=== PATIENT | female | born 1965 | race Caucasian/White ===

== ENCOUNTER 2016-06-29 12:05 | Emergency (ER) | payer BC ==
[~2016-06-29] VITALS: Ht 154.9 cm; Wt 77.1 kg
[2016-06-29 12:11] VITALS: BP 110/73
--- NOTE | 2016-06-29 13:14 | NUR ---
PT TAKEN TO BED 6
--- NOTE | 2016-06-29 13:15 | NUR ---
50/F BIB FAMILY C/O BODY ACHE X YESTERDAY. PT DENIES N/V/D; SKIN IS PINK/WARM/DRY; AAOX4 WITH EVEN AND STEADY GAIT; LUNGS CLEAR BL; HR EVEN AND REGULAR; PT DENIES ANY FEVER, CP, SOB, OR COUGH AT THIS TIME; PATIENT STATES PAIN OF 9/10 AT THIS TIME; VSS; PATIENT POSITIONED FOR COMFORT; HOB ELEVATED; BEDRAILS UP X2; BED DOWN. ER MD MADE AWARE OF PT STATUS.
[2016-06-29] MEDS ORDERED: ONDANSETRON 4 MG ODT PO ONE (14:20)
[2016-06-29] MEDS ORDERED: KETOROLAC 60 MG/2 ML VIAL IM ONE (14:20)
--- NOTE | 2016-06-29 15:08 | NUR ---
PT TAKEN TO CT VIA [facility]EL ACCOMPANIED BY LINOLEUM FLOOR INSTALLER
--- NOTE | 2016-06-29 15:08 | NUR ---
Cherelle calero in ED - 06/29/16 at 1509 by MED1 PT TAKEN TO CT VIA ABEL ACCOMPANIED BY MANAGER CARDIAC CATH
[2016-06-29 15:37] VITALS: BP 110/73
--- NOTE | 2016-06-29 15:38 | NUR ---
Patient discharged with v/s stable. Written and verbal after care instructions given and explained. Patient alert, oriented and verbalized understanding of instructions. Ambulatory with steady gait. All questions addressed prior to discharge. ID band removed. Patient advised to follow up with PMD. Rx of CIPRO AND ZOFRAN given. Patient educated on indication of medication including possible reaction and side effects. Opportunity to ask questions provided and answered.
== END 2016-06-29 15:38 | disposition home or self-care (01) ==
LOC: MED 12:05
DX: J11.1 Influenza due to unidentified influenza virus with other respiratory manifestations (principal); N39.0 Urinary tract infection, site not specified
CPT/HCPCS: 81001; 81025; 87086; 96372; 99284; J1885; S0119

== ENCOUNTER 2016-07-23 17:24 | Emergency (ER) | payer BC ==
[~2016-07-23] VITALS: Ht 154.9 cm; Wt 77.1 kg
[2016-07-23 17:39] VITALS: BP 124/74
--- NOTE | 2016-07-23 18:26 | NUR ---
PT TO BED 4
--- NOTE | 2016-07-23 18:42 | NUR ---
50/F BIB FAMILY C/O FOR EVALUATION OF ALLERGIC REACTION x 2WEEKS. 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 AAOx4, PERRLA, PAIN 3/10 LIPS ITCHY. BREATHING EVEN AND UNLABORED. ERMD NOTIFIED OF PATIENT STATUS.
--- NOTE | 2016-07-23 19:08 | NUR ---
Pt report given to LYUBOV LINDO. Transfer of care at this time.
--- NOTE | 2016-07-23 19:13 | NUR ---
PT STABLE, RESTING IN BED VSS. NO S/S OF DISTRESS NOTED AT THIS TIME. PT ACCOMPANIED BY FAMILY.
[2016-07-23 19:21] VITALS: BP 116/63
--- NOTE | 2016-07-23 19:21 | NUR ---
Patient discharged with v/s stable. Written and verbal after care instructions given and explained. Patient alert, oriented and verbalized understanding of instructions. Ambulatory with steady gait. All questions addressed prior to discharge. ID band removed. Patient advised to follow up with PMD TOMORROW, OR RETURN TO ER IF CONDITION WORSENS. Rx of BENADRYL, AND PREDNISONE given. Patient educated on indication of medication including possible reaction and side effects. Opportunity to ask questions provided and answered.
== END 2016-07-23 19:21 | disposition home or self-care (01) ==
LOC: MED 17:24
DX: L23.9 Allergic contact dermatitis, unspecified cause (principal)
CPT/HCPCS: 99283

== ENCOUNTER 2018-09-18 16:17 | Emergency (ER) | payer BC ==
[~2018-09-18] VITALS: Ht 154.9 cm; Wt 83.5 kg
[2018-09-18 16:21] VITALS: BP 119/69
--- NOTE | 2018-09-18 18:20 | NUR ---
PT TAKEN TO BED 10.
--- NOTE | 2018-09-18 18:30 | NUR ---
PT C/O OF BONE PAIN ON BOTH ARMS, BOTH LEGS, AND NECK FOR 4 MONTHS. PT ALSO C/O HEADACHE FOR ONE DAY AND SLIGHT NAUSEA. DENIES V/D; SKIN IS PINK/WARM/DRY; AAOX4; LUNGS CLEAR BL; HR EVEN AND REGULAR; PT DENIES ANY FEVER, CP, SOB, OR COUGH AT THIS TIME; PATIENT STATES BONE PAIN AND HEADACHE OF 9/10 AT THIS TIME; VSS; PATIENT POSITIONED FOR COMFORT; HOB ELEVATED; BEDRAILS UP X1; BED DOWN. ER MD MADE AWARE OF PT STATUS. FAMILY MEMBER IS AT BEDSIDE.
[2018-09-18] MEDS ORDERED: KETOROLAC 30 MG/ML VIAL IVP ONE (20:05)
--- NOTE | 2018-09-18 20:16 | NUR ---
PT REFUSING IV INSERTION AND MEDICATION ADMIN. ER MD NOTIFIED.
[2018-09-18 20:24] VITALS: BP 119/69
--- NOTE | 2018-09-18 20:24 | NUR ---
Patient does not wish to proceed with medical care recommended by DR MENDOZA. Patient given information related to possible complications, up to and including , which could occur as a result of leaving hospital at this time. Patient verbalizes understanding of risks involved leaving against medical advice. Patient has signed AMA form.
[2018-09-18] MEDS ORDERED: SODIUM CHLORIDE FLUSH 10 ML SYR IVF SCH (21:00)
== END 2018-09-18 20:24 | disposition left against medical advice (07) ==
LOC: MED 16:17
DX: M79.18 Myalgia, other site (principal)
CPT/HCPCS: 99283; J1885

== ENCOUNTER 2023-04-01 13:12 | Emergency (ER) | payer BC ==
[~2023-04-01] VITALS: Ht 154.9 cm; Wt 83.0 kg
[2023-04-01 13:30] VITALS: BP 110/75; PULSE 96; RESP 18; TEMP 100; O2SAT 93
[2023-04-01] MEDS ORDERED: MORPHINE SULFATE 4 MG/ML SYR IVP ONE (13:40)
[2023-04-01] MEDS ORDERED: ONDANSETRON 4 MG/2 ML VIAL IVP ONE (13:40)
[2023-04-01 14:29] VITALS: TEMP 100
[2023-04-01 14:29] LABS: BASOPHILS % (AUTO) 0.4 % (0.0-2.0); EOSINOPHILS % (AUTO) 0.2 % (0.0-4.0); HEMATOCRIT 45.4 % (36-48); HEMOGLOBIN 15.3 g/dL (12.0-16.0); LYMPHOCYTES # (AUTO) 0.5 K/uL (2.5-16.5); LYMPHOCYTES % (AUTO) 6.5 % (20.5-51.1); MEAN CORPUSCULAR HEMOGLOBIN 30 pg (27-31); MEAN CORPUSCULAR HGB CONC 34 g/dL (33-37); MEAN CORPUSCULAR VOLUME 88.9 fL (80-94); MONOCYTES # (AUTO) 0.5 K/uL (0.8-1.0); MONOCYTES % (AUTO) 5.9 % (1.7-9.3); PLATELET COUNT (AUTO) 289 K/uL (140-450); RED BLOOD CELL COUNT(AUTO) 5.11 MIL/uL (4.20-5.40); RED CELL DISTRIBUTION WIDTH 13.4 % (11.6-13.7); WHITE BLOOD COUNT (AUTO) 8.1 K/uL (4.8-10.8)
[2023-04-01 14:40] LABS: APPEARANCE,URINE CLEAR (CLEAR); BILIRUBIN,URINE NEGATIVE (NEGATIVE); BLOOD, URINE 1+ (NEGATIVE); COLOR,URINE YELLOW (YELLOW); LEUKOCYTE ESTERASE ,URINE NEGATIVE (NEGATIVE); NITRITE, URINE NEGATIVE (NEGATIVE); PH,URINE 8.5 (5.0-9.0); PROTEIN,URINE 1+ (NEGATIVE); UGLUCOSE NEGATIVE (NEGATIVE); UROBILINOGEN,URINE 0.2 EU/dL (0.2 - 1)
[2023-04-01 14:46] LABS: ALBUMIN 3.3 g/dL (3.4-5.0); ANION GAP 13.8 (8-16); CALCIUM 8.7 mg/dL (8.5-10.1); CARBON DIOXIDE 23.5 mmol/L (21-32); CREATININE 0.7 mg/dL (0.6-1.3); POTASSIUM 3.3 mmol/L (3.5-5.1); TOTAL BILIRUBIN 0.4 mg/dL (0.0-1.0); TOTAL PROTEIN, SERUM 6.9 g/dL (6.4-8.2)
[2023-04-01 14:54] LABS: RBC,URINE 0-5 /HPF (0-5); WBC,URINE 0-5 /HPF (0-5)
[2023-04-01 14:55] LABS: BACTERIA,URINE 1+ /HPF (None Seen); MUCUS,URINE None Seen /LPF (None Seen); SQUAMOUS EPITHELIAL CELL,UR 0-3 (FEW) /LPF (0-3 (FEW))
[2023-04-01 15:09] LABS: FLU A ANTIGEN negative (NEGATIVE); FLU B ANTIGEN negative (NEGATIVE)
[2023-04-01] MEDS ORDERED: BENZ200C4 PO (15:23)
[2023-04-01] MEDS ORDERED: ONDA-188 SL (15:29)
[2023-04-01 16:13] VITALS: BP 105/68; PULSE 79; RESP 18; O2SAT 96
== END 2023-04-01 16:13 | disposition home or self-care (01) ==
LOC: MED 13:12
DX: B34.9 Viral infection, unspecified (principal); J06.9 Acute upper respiratory infection, unspecified; Z20.822 Contact with and (suspected) exposure to COVID-19; Z79.899 Other long term (current) drug therapy
CPT/HCPCS: 36415; 71046; 80053; 81001; 81025; 83605; 83690; 85025; 87426; 87804; 96374; 96375; 99284; J2270; J2405